=== PATIENT | female | born 1975 | race Caucasian/White ===

== ENCOUNTER → 2018-07-23 | Outpatient (CLI) | payer OTHER | LOC: FIMAGING 08:45 | PROVIDERS: ATTEND Obstetrics & Gynecology | DX: O09.521 Supervision of elderly multigravida, first trimester (principal); O09.291 Supervision of pregnancy with other poor reproductive or obstetric history, first trimester; Z3A.12 12 weeks gestation of pregnancy ==

== ENCOUNTER 2019-01-30 07:52 | Inpatient (IN) | payer OTHER ==
--- NOTE | 2019-01-30 07:35 | PDGENHP ---
History and Physical - Chief Complaint here for R-C/S - History of Present Illness 43 at 39w3d by LMP C/W first trimester US. Here for R-C/S. Declined option. care with [facility] since first trimester. c/b knee surgery at 18 weeks - uncomplicated. AMA - neg NIPT testing and level 2 US Hx of Factor 2, heterozygous Prothrombin gene - with plan for Lovenox 40 mg daily for 6 weeks to start 24 hours after surgery, per [facility] recommendation. has been on Baby ASA until 1 week ago. Concern for Arrhythmia - normal echo and NSTs. Good FM, no VB, no LOF. NO ssx PIH except mild edema. labs - 12.7/35.7 plt 197 A pos Rub Imm GBS neg Innatal neg HBsAG neg HIV neg Std Panel neg UA/u cx neg 28 wk 11.6/34.1 1 hr GTT 94 History Information - Allergies/Home Medication List Allergies/Adverse Reactions: methylprednisolone [From Solu-Medrol] Allergy (Verified 01/30/19 07:35) celebrex Allergy (Uncoded 01/30/19 09:32) Home Medications: Ferrous Sulfate [Iron] 325 mg PO 01/30/19 [Last Taken 1 Day Ago ~01/29/19] Vit27&Calcium/Iron/FA [] 01/30/19 [Last Taken 1 Day Ago ~01/29] I have personally reviewed and updated: family history, medical history, social history, surgical history Past Medical History: PCOS, IBS, asthma. Factor 2 Heterozygote Prothrombin gene mutation - Surgical History Reports: appendectomy (1999) Additional surgical history: 09/13 C/S after IOL for preeclampsia, arrest of dilation. 09/16 arthroscopic knee surgery, right. 1996 wisdom teeth. endoscopy - Family History Additional family history: Sis with DVT post op. Mom - melanoma. F - A fib - Social History Smoking Status: Never smoked Alcohol Use: None Drug Use: None Additional social history: former RN, now [employer] Review of Systems Review of Systems: ROS: 10pt was reviewed & negative except for what was stated in HPI & below Physical Exam Physical Exam: Temp Pulse Resp BP Pulse Ox 37.4 C 97 20 145/92 H 01/30/19 09:16 01/30/19 09:16 01/30/19 09:16 01/30/19 09:16 repeat BP 122/70, 130/76, 145/92 Constitutional: no apparent distress, appears nourished, not in pain Eyes: PERRL, anicteric sclera, EOMI Ears, Nose, Mouth, Throat: moist mucous membranes, hearing normal, ears appear normal Cardiovascular: regular rate and rhythym, no murmur, rub, or gallop Respiratory: no respiratory distress, no rales or rhonchi Gastrointestinal: normoactive bowel sounds, soft, non-tender abdomen, no palpable masses, other (gravid, NT) Genitourinary: no bladder fullness Skin: warm, normal color Musculoskeletal: full muscle strength, no muscle tenderness, normal joint ROM Neurologic: AAOx3, sensation intact bilaterally, other (LLE 2+ DTRS, no clonus) Psychiatric: interacting appropriately Lymph, Heme, Immunologic: no cervical LAD Lab Data & Imaging Review 01/30/19 08:47 Assessment & Plan Assessment: A/P: 43 at 39w3d here for elective repeat C/S. Written informed consent obtained. Will proceed. Sanna Lee MD, FACOG
[2019-01-30] MEDS ORDERED: CITRIC ACID/SODIUM CITRATE 30 ML UDCUP PO ONE (08:37)
[2019-01-30] MEDS ORDERED: METOCLOPRAMIDE 10 MG/2 ML VIAL IVP ONE (08:37)
[2019-01-30] MEDS ORDERED: RANITIDINE 50 MG/2 ML VIAL IVP ONE (08:37)
[2019-01-30] MEDS ORDERED: LR 1,000 ML IV SCH (08:37)
[2019-01-30] MEDS ORDERED: LR 500 ML IV ONE (08:37)
[2019-01-30] MEDS ORDERED: GABAPENTIN 300 MG CAP PO ONE (08:45)
[2019-01-30 08:55] LABS: PLATELET COUNT 131 10^3/uL (150-400)
--- NOTE | 2019-01-30 09:09 | PREANESOB ---
Obstetric Pre-Anesthesia Info - General Info Proposed Procedure: Repeat c/s - Info Status: Full Term FHR Pattern: Reassuring - Labor Status Section History: Repeat Indications for Current Section: Elective/Repeat Labor Epidural: No Anesthesia Allergies/Adverse Reactions: Allergy/AdvReac Type Severity Reaction Status Date / Time methylprednisolone Allergy Verified 01/30/19 07:35 [From Solu-Medrol] Home Medications: Medication Instructions Recorded Vit27&Calcium/Iron/FA 01/30/19 [] Visit Medications: Generic Name Dose Route Start Last Admin Trade Name Freq PRN Reason Stop Dose Admin Acetaminophen 1,000 mg 01/30/19 14:00 Tylenol PO 07/29/19 13:59 Q8HRS DALE Lactated Ringer's 1,000 mls @ 125 mls/hr 01/30/19 08:37 Lr IV 01/31/19 08:36 CONT DALE Discontinued Medications Generic Name Dose Route Start Last Admin Trade Name Freq PRN Reason Stop Dose Admin Citric Acid/Sodium Citrate 30 ml 01/30/19 08:37 Bicitra PO 01/30/19 08:38 ONCALL ONE Gabapentin 600 mg 01/30/19 08:45 Neurontin PO 01/30/19 08:46 ONCALL ONE Lactated Ringer's 500 mls @ 0 mls/hr 01/30/19 08:37 Lr IV 01/30/19 08:38 ONCE ONE As Directed Metoclopramide HCl 10 mg 01/30/19 08:37 Reglan Injection IVP 01/30/19 08:38 ONCE ONE Ranitidine HCl 50 mg 01/30/19 08:37 Zantac IVP 01/30/19 08:38 ONCE ONE - Anesthesia History Response to Local Anesthetics: Normal Family Anesthesia History: Not Applicable - Social History Substance Use/Abuse: Denies - Vital Signs Height/Weight (Nursing): Height 172.72 cm Weight 104.326 kg - Focused Exam Neck exam: FROM Mallampati Score: Class 2 Mouth exam: normal dental/mouth exam Pulmonary: no respiratory distress Cardiovascular: regular rate and rhythym Labs: 01/30/19 08:47 - Plan Anesthetic Plan: SAB Consent Signed and on Chart: Yes Patient/Guardian Understands and Agrees to Plan: Yes
[2019-01-30] MEDS ORDERED: morphINE PF 5 MG/10 ML INJ ONE (09:33)
[2019-01-30] MEDS ORDERED: OXYTOCIN 100 UNITS/10 ML VIAL ONE (09:36)
[2019-01-30] MEDS ORDERED: DEXAMETHASONE 4 MG/ML VIAL ONE (09:36)
[2019-01-30] MEDS ORDERED: ONDANSETRON 4 MG/2 ML VIAL ONE (09:36)
[2019-01-30] MEDS: ACETAMINOPHEN 500 MG TAB PO SCH ×3 (09:57→19:38)
[2019-01-30] MEDS ORDERED: OXYCODONE/APAP 5/325 TAB PO PRN ×2 (10:14→11:41)
[2019-01-30] MEDS ORDERED: PHENYLEPHRINE HCL 100 MCG/ML SYR IVP PRN (10:14)
[2019-01-30] MEDS ORDERED: ONDANSETRON 4 MG/2 ML VIAL IVP PRN ×2 (10:14)
[2019-01-30] MEDS ORDERED: MEPERIDINE 25 MG/0.5 ML AMP IVP PRN (10:14)
[2019-01-30] MEDS ORDERED: NALOXONE HCL 0.4 MG/ML INJ IVP PRN ×2 (10:14)
[2019-01-30] MEDS ORDERED: fentaNYL 100 MCG/2 ML INJ IVP PRN (10:14)
--- NOTE | 2019-01-30 10:16 | POSTANESTH ---
Post Anesthetic Evaluation Cardiovascular Status: Normal, Stable, Similar to Pre-Op Cond Respiratory Status: Normal, Stable, Similar to Pre-op Cond. Level of Consciousness/Mental Status: Can Participate in Eval, Alert and Oriented Pain Control: Adequate, Prn Tx Ordered Nausea/Vomiting Control: Adequate, Prn Tx Ordered Complications Possibly Related to Anesthesia: None Noted
[2019-01-30] MEDS ORDERED: ceFAZolin 1 GM VIAL ONE ×2 (10:35)
[2019-01-30] MEDS ORDERED: ceFAZolin 2 GM/DEXTROSE 100 ML IV ONE (10:37)
[2019-01-30] MEDS ORDERED: BUPIVACAINE/DEXTROSE 7.5MG/ML 2 ML SPINAL AMP SP ONE (10:42)
[2019-01-30] MEDS ORDERED: PHENYLEPHRINE HCL 100 MCG/ML SYR ONE (11:25)
[2019-01-30] MEDS ORDERED: POLYETHYLENE GLYCOL 3350 17 GM PKT PO PRN (11:41)
[2019-01-30] MEDS ORDERED: LACTULOSE 20 GM/30 ML UDCUP PO PRN (11:41)
[2019-01-30] MEDS ORDERED: BISACODYL 10 MG SUPP PR PRN (11:41)
[2019-01-30] MEDS ORDERED: MAGNESIUM HYDROXIDE 30 ML UDCUP PO PRN (11:41)
[2019-01-30] MEDS ORDERED: ACETAMINOPHEN 325 MG TAB PO SCH (11:45)
[2019-01-30] MEDS: KETOROLAC 30 MG/1 ML SDV IVP SCH ×2 (11:45→19:39)
[2019-01-30] MEDS ORDERED: KETOROLAC 30 MG/1 ML SDV ONE (11:46)
--- NOTE | 2019-01-30 11:52 | OBDEL ---
Info Type: Primary Presentation at Delivery: Vertex L&D Analgesia/Anesthesia Type: Spinal GBS+: No Intrapartum Medications: Generic Name Dose Route Start Last Admin Trade Name Freq PRN Reason Stop Dose Admin Acetaminophen 1,000 mg 01/30/19 10:00 01/30/19 09:57 Tylenol PO 07/29/19 09:59 1,000 mg Q8HRS DALE Administration Discontinued Medications Generic Name Dose Route Start Last Admin Trade Name Freq PRN Reason Stop Dose Admin Citric Acid/Sodium Citrate 30 ml 01/30/19 08:37 01/30/19 10:00 Bicitra PO 01/30/19 08:38 30 ml ONCALL ONE Administration Cefazolin Sodium/Dextrose 100 mls @ 200 mls/hr 01/30/19 10:37 01/30/19 10:37 Ancef IV 01/30/19 11:06 100 mls ONCALL ONE Administration Protocol Metoclopramide HCl 10 mg 01/30/19 08:37 01/30/19 10:00 Reglan Injection IVP 01/30/19 08:38 10 mg ONCE ONE Administration Ranitidine HCl 50 mg 01/30/19 08:37 01/30/19 10:01 Zantac IVP 01/30/19 08:38 50 mg ONCE ONE Administration - Care Provider Project Management Specialist/DIRECTOR [employer] DEVELOPMENT: Kaci Wyatt Indications for Delivery: Elective Operative Report - Delivery Pre-op Diagnoses: Elective repeat C/S at 39w3d Post-op Diagnoses: Same History of Prior Section: Yes Number of Prior Sections: 1 Nulliparous Prior to Delivery: No Indications for Prior Section: Arrest of Dilation Indications for Current Section: Elective/Repeat Procedure: Scheduled Surgeon: Sanna Lee Software Intern: Zahra Ramon Anesthesiologist: Edwar Denton Complications: None Findings: Normal appearing uterus, tube, ovaries. Delivery of male from vertex presentation, Apgars 8 at 1 min and 9 at 5 min. 3555gm infant. IV Fluid (ml): 1,400 EBL: 800 [place] Data VONDA: 02/03/19 Gestational Age: 39 week(s) and 3 day(s) ICD10 Worksheet Patient Problems: Problems Problem Status Onset Antibiotics administered prior to section Acute delivery delivered Acute - ICD10 Problem Qualifiers (1) Antibiotics administered prior to section (2) delivery delivered
--- NOTE | 2019-01-30 11:56 | POSTOPPROG ---
Post Op Note Date of Operation: 01/30/19 Surgeon: Sanna Lee Diamond Sawer: Zahra Ramon Anesthesiologist: Edwar Denton Pre-op Diagnosis: elective repeat C/S, 39w3d Post-op Diagnosis: same Indication: elective Procedure: repeat low transverse C/S Findings: normal appearing uterus, tubes and ovaries, male 3555gm Inf/Abcess present in the surg proc area at time of surgery?: No EBL: 500-1000 Total fluids administered: 1400 Complications: none
--- NOTE | 2019-01-30 12:33 | GOP ---
[f rep st] OPERATIVE REPORT DATE OF OPERATION: 01/30/2019 SURGEON: Sanna Lee MD [employer] SUPERVISOR: NICK Bowling. ANESTHESIOLOGIST: Edwar Denton MD. PREOPERATIVE DIAGNOSIS: Elective repeat section at 39 weeks and 3 days gestation. POSTOPERATIVE DIAGNOSIS: Elective repeat section at 39 weeks and 3 days gestation. PROCEDURE PERFORMED: Repeat low transverse . FINDINGS: Normal-appearing uterus, tubes and ovaries. Male infant delivered from the vertex presentation, weighing 3555 g. Apgars 8 at 1 minute, 9 at 5 minutes. ESTIMATED BLOOD LOSS: 800 mL. INDICATIONS: A 43-year-old 2, para 1 female at 39 weeks and 3 days, desiring elective repeat section on this day. She declined the option of a vaginal after attempt. DESCRIPTION OF PROCEDURE: A full history and physical exam were performed on the patient in the preoperative area. Written informed consent was obtained. She was taken to the operating room where spinal anesthetic was placed. She was then placed in the dorsal supine position. A Haider catheter was placed under sterile conditions. heart tones were checked. Her abdomen was prepared and draped in the standard fashion. A WHO time-out was performed. She did receive 2 g of Ancef prior to the incision. A sensation test was performed and anesthesia was deemed adequate. An incision was made over her previous incision and taken down sharply to the fascia. The fascia was incised in the midline and extended laterally in a sharp fashion. The rectus muscles were dissected away from the overlying fascia in a sharp and blunt fashion. This was done superiorly and inferiorly. The rectus muscles were then in the midline and the peritoneum was entered bluntly. This opening was extended in a blunt fashion. The bladder blade was inserted. A bladder flap was created with a combination of sharp and blunt dissection and the bladder blade was replaced over the bladder flap. Hysterotomy was made and extended laterally with the bandage scissors. Rupture of the membranes revealed release of clear fluid. The infant's vertex was able to be grasped and delivered through the incision with the assistance of fundal pressure. Bulb suction was performed. The remainder of the infant was then delivered with the assistance of fundal pressure. One-minute delay was observed before the cord was clamped and cut. During that time, the baby was stimulated and dried and showed to the patient through the clear drape. The baby was then handed to the waiting nurse practitioner, who was Kaci Wyatt. The placenta then delivered spontaneously with the assistance of fundal massage. The uterus was cleared of all clots and debris x2. Hysterotomy was repaired with 0 Monocryl in a running locked fashion for the first layer and a second imbricating layer was also performed. A few additional sutures of 0 Monocryl were used to obtain excellent hemostasis in addition to cautery. The uterus was then replaced into the abdomen and the gutters were irrigated and cleared of all clots and debris. The fascia was closed with 0 PDS in a running fashion. [place] fascia was closed with 2 Monocryl in a running fashion. The skin was then closed with 3-0 Monocryl in a running subcuticular fashion and covered with Steri-Strips and a dressing. Sponge, lap and needle counts were correct x2. The patient was taken to the recovery room in stable condition. She was given Duramorph in her spinal. TOTAL FLUIDS ADMINISTERED: 1400 mL. URINE OUTPUT: 200 mL. COMPLICATIONS: None /[id number]/MODL MTDD
[2019-01-30] MEDS ORDERED: PROMETHAZINE HCL 25 MG/ML INJ IVP ONE (13:17)
[2019-01-30] MEDS: SENNOSIDES/DOCUSATE SODIUM TAB PO SCH (19:39)
[2019-01-31] MEDS: KETOROLAC 30 MG/1 ML SDV IVP SCH ×2 (01:40→08:39)
[2019-01-31] MEDS: ACETAMINOPHEN 500 MG TAB PO SCH ×3 (05:38→20:59)
[2019-01-31] MEDS ORDERED: KETOROLAC 30 MG/1 ML SDV IVP SCH (08:00)
[2019-01-31] MEDS: SENNOSIDES/DOCUSATE SODIUM TAB PO SCH ×2 (08:06→20:59)
--- NOTE | 2019-01-31 09:42 | POSTANESTH ---
Post Anesthetic Evaluation Cardiovascular Status: Normal, Stable Respiratory Status: Normal, Stable Level of Consciousness/Mental Status: Can Participate in Eval, Alert and Oriented Pain Control: Adequate, Prn Tx Ordered Nausea/Vomiting Control: Adequate, Prn Tx Ordered Complications Possibly Related to Anesthesia: None Noted (Duramorph Folow-Up, patient doing well, nausea improved)
[2019-01-31] MEDS: ENOXAPARIN 40 MG/0.4 ML SYR SC SCH (11:26)
[2019-01-31] MEDS: FERRO-SEQUELS 65 MG TAB.ER PO SCH (11:27)
[2019-01-31] MEDS: oxyCODONE IR 5 MG TAB PO PRN ×3 (13:55→22:34)
--- NOTE | 2019-01-31 14:02 | OBPP ---
Progress Note Assessment/Plan: Assessment: POD 1 s/p RCS AMA Factor II heterozygous - plan of lovenox for 6 wks anemia Plan: Routine Post op care, begin iron 01/31/19 13:59 01/31/19 14:01 Subjective/ Course: 01/31/19 14:01 Pt doing ok - very happy to be done with and have baby here safe. Was able to urinate after tyler removed. Amb well. moderate lochia - decreasing. pain is managed with tyl and oxy. pt really appreciates the call I gave her last week with the worries about the LDA. no nausea - oziel reg diet. baby has latched well. 01/31/19 14:23 Objective: 01/31/19 05:00 Patient ABO/Rh A POSITIVE 01/30/19 08:47 Temp Pulse Resp BP Pulse Ox 36.9 C 92 14 138/74 H 96 01/31/19 11:45 01/31/19 11:45 01/31/19 11:45 01/31/19 11:45 01/31/19 11:45 Uterine Position/Fundal Height: Umbilicus -1 Uterine Tone: Firm Physical Exam - Physical Exam Abdomen: non-tender (approp post op tenderness), soft, dressing (CDI) Extremities: non-tender, pedal edema (mild) Skin: normal color, warm/dry Neuro/Psych: alert, normal mood/affect
[2019-02-01] MEDS: oxyCODONE IR 5 MG TAB PO PRN ×5 (02:31→20:50)
[2019-02-01] MEDS: ACETAMINOPHEN 500 MG TAB PO SCH ×3 (05:43→21:01)
[2019-02-01] MEDS: FERRO-SEQUELS 65 MG TAB.ER PO SCH (08:32)
[2019-02-01] MEDS: SENNOSIDES/DOCUSATE SODIUM TAB PO SCH ×2 (08:32→20:06)
[2019-02-01] MEDS: ENOXAPARIN 40 MG/0.4 ML SYR SC SCH ×2 (08:33→11:21)
--- NOTE | 2019-02-01 10:44 | OBPP ---
Progress Note Assessment/Plan: Assessment: 43 pod# 2 s/p RLTCS A+/RI/GBS- anemia on iron breast feeding factor 2/ heterzgous prothrombia - anticoagulation x 6 weeks with lovenox cough variant asthma 02/01/19 10:41 02/01/19 10:42 Subjective/ Course: 01/31/19 14:01 Pt doing ok - very happy to be done with and have baby here safe. Was able to urinate after tyler removed. Amb well. moderate lochia - decreasing. pain is managed with tyl and oxy. pt really appreciates the call I gave her last week with the worries about the LDA. no nausea - oziel reg diet. baby has latched well. 01/31/19 14:23 02/01/19 10:42 patient is doing well. pain is well controlled. normal lochia. denies headache and changes in vision. breast feeding is going well. ambulating. passing gas. started lovenox. had a small bowel movement. voiding without difficulty. would like to go home tomorrow. Objective: 01/31/19 05:00 Patient ABO/Rh A POSITIVE 01/30/19 08:47 Temp Pulse Resp BP Pulse Ox 36.7 C 92 16 130/78 H 96 02/01/19 08:00 02/01/19 08:00 02/01/19 08:00 02/01/19 08:00 02/01/19 08:00 Physical Exam - Physical Exam Neck: non-tender, full range of motion, supple Respiratory: chest non-tender, lungs clear, normal breath sounds Cardiac/Chest: normal peripheral pulses, regular rate, rhythm Abdomen: normal bowel sounds, non-tender Extremities: normal range of motion, non-tender, normal inspection, normal capillary refill Skin: normal color, warm/dry, other (incicison clean dry and intact) Neuro/Psych: no motor/sensory deficits, alert, normal mood/affect, oriented x 3
[2019-02-02] MEDS: oxyCODONE IR 5 MG TAB PO PRN ×2 (01:13→05:22)
[2019-02-02] MEDS: ACETAMINOPHEN 500 MG TAB PO SCH ×2 (06:05→13:23)
--- NOTE | 2019-02-02 08:32 | OBPP ---
Progress Note Assessment/Plan: Assessment:43 POD#3 s/p R-C/S, doing well Plan:DC home. Std post op instructions reviewed, including no heavy lifting > 15lb for 6 wk, and ssx pp depression. See dc summary. Sanna Lee MD, FACOG 02/02/19 08:29 Subjective/ Course: 01/31/19 14:01 Pt doing ok - very happy to be done with and have baby here safe. Was able to urinate after tyler removed. Amb well. moderate lochia - decreasing. pain is managed with tyl and oxy. pt really appreciates the call I gave her last week with the worries about the LDA. no nausea - oziel reg diet. baby has latched well. 01/31/19 14:23 02/01/19 10:42 patient is doing well. pain is well controlled. normal lochia. denies headache and changes in vision. breast feeding is going well. ambulating. passing gas. started lovenox. had a small bowel movement. voiding without difficulty. would like to go home tomorrow. 02/02/19 08:30 Pt doing well. Pain well controlled. Lochia decreasing. BF going well. Ambulating, voiding, oziel reg diet without concern. + flatus and BM. Pain well controlled with po meds. Objective: 01/31/19 05:00 Patient ABO/Rh A POSITIVE 01/30/19 08:47 Temp Pulse Resp BP Pulse Ox 37.3 C 101 H 16 121/79 H 95 02/01/19 22:00 02/01/19 22:00 02/01/19 22:00 02/01/19 22:00 02/01/19 22:00 gen - pleasant, NAD CV - RRR chest - CTAB abd - soft, + BS, inc - C/D/I ext - trace edema, calves NT Uterine Position/Fundal Height: Umbilicus -2 Uterine Tone: Firm
--- NOTE | 2019-02-02 09:10 | OBGCSDC ---
General Delivery Information - General Info : 2 Para: 1 Abortions: 0 Type: Primary L&D Analgesia/Anesthesia Type: Spinal Admission Date: 01/30/19 Labs: Patient ABO/Rh A POSITIVE 01/30/19 08:47 Hct 31.5 % (38.0-47.0) L 01/31/19 05:00 - Hospital Course : 01/31/19 14:01 Pt doing ok - very happy to be done with and have baby here safe. Was able to urinate after tyler removed. Amb well. moderate lochia - decreasing. pain is managed with tyl and oxy. pt really appreciates the call I gave her last week with the worries about the LDA. no nausea - oziel reg diet. baby has latched well. 01/31/19 14:23 02/01/19 10:42 patient is doing well. pain is well controlled. normal lochia. denies headache and changes in vision. breast feeding is going well. ambulating. passing gas. started lovenox. had a small bowel movement. voiding without difficulty. would like to go home tomorrow. 02/02/19 08:30 Pt doing well. Pain well controlled. Lochia decreasing. BF going well. Ambulating, voiding, oziel reg diet without concern. + flatus and BM. Pain well controlled with po meds. - Delivery Providers Surgeon: Sanna Lee Railroad Car Repair Supervisor: Zahra Ramon Anesthesiologist: Edwar Denton - Delivery Number of Prior Sections: 1 Indications for Current Section: Elective/Repeat Surgical Procedures: Scheduled Intra-op Complications: None EBL: 800 [place] Data VONDA: 02/03/19 Gestational Age: 39 week(s) and 6 day(s) [place] Delivery Date: 01/30/19 Delivery Time: 10:56 Sex of : Female [place] Weight (gm): 3540 g Score (1 Min): 8 Score (5 Min): 9 Discharge Information - Discharge Information Prescriptions: oxyCODONE IR [Oxycodone Ir (*)] 5 - 10 mg PO Q4HRS PRN #30 tab PRN Reason: Pain, Severe Able To Take Po Enoxaparin [Lovenox 40 MG (*)] 40 mg SC DAILY 42 Days #42 syr Condition: Good Instruction/Follow Up: See Instruction Sheet, Two Weeks
[2019-02-02 09:42] VITALS: BP 134/82
[2019-02-02] MEDS: SENNOSIDES/DOCUSATE SODIUM TAB PO SCH (09:47)
[2019-02-02] MEDS: FERRO-SEQUELS 65 MG TAB.ER PO SCH (09:47)
[2019-02-02] MEDS: ENOXAPARIN 40 MG/0.4 ML SYR SC SCH ×3 (10:16→12:12)
--- NOTE | 2019-02-02 12:13 | CPEKG ---
Test Reason : OPEN Blood Pressure : / mmHG Vent. Rate : 099 BPM Atrial Rate : 099 BPM P-R Int : 154 ms QRS Dur : 089 ms QT Int : 336 ms P-R-T Axes : 038 012 016 degrees QTc Int : 432 ms Sinus rhythm Confirmed by Finesse Trejo ([id number]) on 02/02/2019 12:12:40 PM Referred By: Sanna Lee Confirmed By:Finesse Trejo
== END 2019-02-02 15:15 | disposition home or self-care (01) | DRG 788 ==
LOC: FLD 07:52 → FOB 14:50
PROVIDERS: ADMIT Hospitalist; ATTEND Hospitalist
PROC: 10D00Z1 Extraction of Products of Conception, Low, Open Approach (ICD-10-PCS; principal; 2019-01-30)
DX: O34.211 Maternal care for low transverse scar from previous cesarean delivery (principal); Z37.0 Single live birth; Z3A.39 39 weeks gestation of pregnancy
CPT/HCPCS: J0690; J1100; J1650; J1885; J2274; J2370; J2405; J2550; J2590; J2765; J2780